=== PATIENT | female | born 1980 | race Caucasian/White ===

== ENCOUNTER 2021-12-29 08:11 | Day surgery (SDC) | payer BC, SELFPAY ==
--- NOTE | 2021-12-20 07:56 | PCM.HP.BLA ---
History and Physical Date of Admission: 12/29/21 Pre-Op History and Physical ? HPI: The patient is a 41 year old female presenting for AUB and hydrosalpinx. Pt would like to proceed with Endometrial ablation, hysteroscopy and Laparoscopic bilateral salpingectomy. Pt does not desire further child bearing capabilities- had vasectomy previously. pre-operative visit. She is scheduled for Hysteroscopy, Endometrial ablation, Laparoscopic bilateral salpingectomy, for AUB, hydrosalpinx, desires sterilization on 12/29/21. Procedure discussed along with risks, benefits and complications. Other alternatives discussed for management. Consent form signed? Yes. ? ? PAST MEDICAL HISTORY PAST MEDICAL HISTORY Diagnosis Date ? Anxiety ? ? on meds ? Asthma ? ? childhood, albuterol as needed ? Foot drop, right foot ? ? Low back pain ? ? in pain management ? PDA (patent ductus arteriosus) ? ? at 4 yo ? ? PAST SURGICAL HISTORY PAST SURGICAL HISTORY Procedure Laterality Date ? D&C, DIAG AND/OR THERAPEUTIC ? 10/2016 ? Dilation & curettage ? PAST SURGICAL HISTORY OF Left 2013 ? ORIF left ankle with hardware ? PAST SURGICAL HISTORY OF ? 07/15/2015 ? microdiscectomy and lumbar laminectomy ? PDA CLOSURE ? ? ? 4 yo ? ? ? CURRENT MEDICATIONS Current Outpatient Medications Medication Sig Dispense Refill ? meloxicam (MOBIC) 7.5 mg tablet Take 7.5 mg by mouth. ? ? ? amitriptyline (ELAVIL) 50 mg tablet Take 50 mg by mouth daily at bedtime. ? ? ? lisinopril (ZESTRIL, PRINIVIL) 10 mg tablet lisinopril 10 mg tablet ? ? ? escitalopram oxalate (LEXAPRO) 10 mg tablet Take 10 mg by mouth. ? ? ? No current facility-administered medications for this visit. ? ? ALLERGIES: Patient has no known allergies. ? PERSONAL HISTORY: SOCIAL HISTORY Social History ? Tobacco Use ? Smoking status: Current Every Day Smoker ? ? Packs/day: 0.50 ? ? Years: 23.00 ? ? Pack years: 11.50 ? ? Types: Cigarettes ? Smokeless tobacco: Never Used Substance Use Topics ? Alcohol use: Yes ? ? Comment: 10/month ? Drug use: No ? FAMILY HISTORY: FAMILY HISTORY FAMILY HISTORY Problem Relation Age of Onset ? Hypertension Mother ? ? Heart disease Maternal Grandfather ? ? Diabetes Maternal Grandfather ? ? Heart disease Paternal Grandfather ? ? ? REVIEW OF SYMPTOMS: negative except as noted above PHYSICAL EXAMINATION: ? VITALS: Blood pressure 126/84, height 5' 5 (1.651 m), weight 185 lb (83.9 kg), last menstrual period 12/01/2021. ? GENERAL: The patient is well nourished, well hydrated in no acute distress. , The patient is oriented to time, place, and person. NECK: full range of motion LUNGS: Clear to auscultation bilaterally. no wheezes, rhonchi or rales HEART: Regular rate and rhythm, Normal heart sounds and No murmurs or gallops ? ? IMPRESSION: AUB, hydrosalpinx, desires sterilization ? PLAN: Hysteroscopy, Ashley ablation, Lap Salpingectomy ? Pt has been counseled on risks/benefits and alternatives of surgery including but not limited to anesthesia, bleeding, infection, injury to pelvic structures including bowel, bladder, ureters and vessels. Pt wishes to proceed with surgery at this time. Pt understands off label use with fibroids - greatest 2.9cm. pt wishes to proceed. ? Pre and post op instructions reviewed. ? I have reviewed and updated past medical and surgical history, medications and allergies Karen Bynum MD ?4:36 PM
[2021-12-29] VITALS (7 sets, daily range): BP systolic 121–141; BP diastolic 76–94; PULSE 65–84; RESP 16–18; TEMP 36.3–36.4; O2SAT 97–100; BMI 29.9
--- NOTE | 2021-12-29 | FALS_PTH ---
PATIENT: HARSHA MÉNDEZ [place] [facility] [id number] AGE/SX: 41/F ROOM: RE12/29/[address]: Dr. Karen Leggett, MDDOB: 1980 BED: DIS: 12/29/2021 SPEC #: [id number] RECD: 12/29/21 12:53 STATUS: CHACE RAN #: [id number] COSME: 12/29/21 00:[address]: Karen Leggett DEPT: SURGICAL PATHOLOGY RECD BY: Jeffry Falk Tissues: Fallopian tube Procedures: Surgery Specimen Level IV Surgery Specimen Level V HEADER OPERATION: Hysteroscopy, Ashley, laparoscopic salpingectomy PRE-OP DIAGNOSIS: Hydrosalpinx, sterilization, abnormal uterine bleeding TISSUE SUBMITTED: Bilateral fallopian tubes MICROSCOPIC DIAGNOSIS Bilateral fallopian tubes, salpingectomy: One fallopian tube, no pathologic diagnosis. Second fallopian tube with dilated lumen consistent with hydrosalpinx. YASMEEN:екатерина 12/30/2021 MICROSCOPIC DESCRIPTION Slides are reviewed. GROSS DESCRIPTION Received in fixative is one container labeled with the patient's name and designated bilateral fallopian tubes. The specimen consists of bilateral fallopian tubes including fimbrial ends. One fallopian tube is intact and measures 6 cm in length and 0.5 cm in diameter. The second fallopian tube is received in multiple pieces measuring in aggregate 3 x 2 x 0.5 cm. One of the pieces is dilated lumen measuring up to 1 cm in diameter. The fallopian tubes are not identified as right or left. Sections reveal unremarkable cut surfaces. Balloon Design Printer sections are submitted in two cassettes as follows: 1 - intact fallopian tube, 2 - second fallopian tube received in multiple pieces. / YASMEEN:екатерниа 12/29/2021 :4 CPT: 17343, 19422
--- NOTE | 2021-12-29 08:23 | EKG12_ITS ---
Test Reason : PRE OP Blood Pressure : / mmHG Vent. Rate : 064 BPM Atrial Rate : 064 BPM P-R Int : 124 ms QRS Dur : 080 ms QT Int : 436 ms P-R-T Axes : 009 020 016 degrees QTc Int : 449 ms Normal sinus rhythm Normal ECG No previous ECGs available Confirmed by LISA MARTIN, ALEK ([id number]), graphic editor JAMIL GRANDA ([id number]) on 01/02/2022 11:28:34 AM Referred By: Karen Leggett Confirmed By:ALEK ROSENBAUM MD
[2021-12-29 08:44] LABS: Internal QC Validated? YES +Cl - CLEAR BKGD; Pregnancy, Urine Negative Negative
[2021-12-29] MEDS: Lactated Ringers 1,000 ML 15 ML IV ×2 (09:00→10:50)
--- NOTE | 2021-12-29 09:20 | EX.PCM.DISCH ---
Discharge Instructions Procedure Other Diet Discharge Diet: No restrictions Activity May resume sexual activity in: 2 weeks Lifting Restrictions: 20-25 lbs Dressing / Incision Call your doctor if your incision/area has: Continuous Slow Oozing, Sudden Increased Bleeding, Increased Pain/ Swelling, Increased Redness, Foul Smelling Discharge and Swelling at the incision site Call your doctor if you observe: Fever of 101 or Higher, Inability to urinate, Inability to have a bowel movement, Using more than 1 pad per hour and Uncontrolled pain Additional Dressing/Incision Instructions:: You have skin glue over your incision sites, do not pick off. You may shower and let the soap and water run over the incision sites and dab dry. Follow Up Care Please Follow Up With: Karen Leggett MD When: 1-2 weeks post OP if you need an appointment please call [phone] Test Results: Test results from this visit will be discussed in further detail at your follow-up appointment, if applicable. Discharge Plan Admission Attending Provider: Karen Leggett Discharge Orders/Prescriptions Prescriptions: No Action acetaminophen [Tylenol] 325 mg Tablet 650 mg PO Q4H PRN (Reason: Pain) RF: 0 lisinopril 10 mg Tablet 10 mg PO QHS RF: 0 ibuprofen 400 mg Tablet 400 mg PO Q6H PRN (Reason: Pain) RF: 0 escitalopram oxalate [Lexapro] 20 mg Tablet 40 mg PO QHS RF: 0
--- NOTE | 2021-12-29 09:21 | PCM.OPRPT ---
Problems Associated Problem List Diagnoses (1) Hydrosalpinx: (2) Request for sterilization: (3) Abnormal uterine bleeding (AUB): Report of Operation Date of Procedure: 12/29/21 Pre-Operative Diagnosis: Hydrosalpinx, desires sterilization, AUB Post-Operative Diagnosis: same Surgery/Procedure Performed:: Hysteroscopy, Ashley ablation, Laparoscopic bilateral salpingectomy Description of Surgical Findings:: Adhesions of left tube to pelvic side wall and uterus. Hydrosalpinx on left. Right tube and ovary normal. Surgeon: Karen Leggett chemistry technical officer: James Rivers Type of Anesthesia: General and Local Anesthesiologist: Manjinder Ordaz Special Medications: 0.5% marcaine Specimen's removed: bilateral tubes Drains: none Estimated Blood Loss (mL): 20 Fluids Replaced: 800 Description of Procedure: After informed consent was obtained patient taken to the operating room she is placed in supine position she is given anesthesia simply self insert she is prepped draped normal sterile fashion. Bladder was drained prior to the start of the procedure. At this time the weighted speculum was placed the posterior fornix of the vagina then a single-tooth tenaculum was used to grasp the anterior lip of the cervix. At this time the uterus was sounded to approximately 8 cm the endocervical canal sounded to 4 cm. Next cervix was dilated in incremental fashion. Once adequate dilatation was achieved the hysteroscope was inserted using normal saline as distention medium. On hysteroscopy there were no gross abnormalities. Both tubal ostia were visualized. At this At this time the Ashley device was opened. The Ashley was set at 4cm. The device was activated. Prior to activation the field test was performed and cavity was intact. The device was then fired and activated for 120 seconds. Once the 120 seconds was completed the device was removed intact and the tenaculum was removed. Good hemostasis was appreciated. Uterine Manipulator was placed. Weighted speculum was removed. Legs then placed in parallel with the abdomen the tenaculum and the weighted speculum were removed. 2 towel clamps were placed at level of umbilicus. Marcaine was injected infraumbilical and a small incision was made. The 5 mm trocar was placed under direct visualization. CO2 gas was used to insufflate the intra-abdominal cavity. Upon inspection the left tube and ovary were adherent to the pelvic sidewall and uterus. Hydrosalpinx appreciated the left. Multiple subserosal fibroids appreciated. At this time then the LLQ and RLQ ports were placed First Marcaine was injected and small incision was made a knife and the 5 mm trocars were placed. At this time the left tube was removed only partially. He started at the cornuate and and were able to dissect it and coagulate and ligate almost to the fimbriated end. There were multiple adhesions and I felt at this time it was safer to stop dissection. The majority of the tube was removed. Brown serous drainage was appreciated out of the tube. On the right tube was traced back to the fimbriated end it was removed in entirety by coagulated and ligated along mesosalpinx. X hemostasis was appreciated copious irrigation was performed. Good hemostasis was appreciated. At this time procedure was deemed complete successful. The gas was desufflated on from the intra-abdominal cavity. The trochars were removed. Skin was closed using 4-0 Monocryl in a subcutaneous fashion. Dermabond glue was placed. Instrument lap and needle counts were correct ?2. The uterine manipulator was removed. Vaginal sweep was performed it was negative. There were no complications anticipated normal postoperative course for this patient. Grafts/Implants Used: none Procedure Start Time: 09:47 Procedure Stop Time: 10:23 Admit VTE Documentation VTE Present on Admission: Yes VTE Mechan Device Prophylaxis: SCD's VTE Pharm Prophylaxis ordered?: No Reason prophylaxis not ordered:: Procedure Not Indicated
[2021-12-29 09:24] LABS: Hematocrit 35.8 % (37-47); Mean Corp Hgb Conc 33.5 g/dL (32-36); Mean Corpuscular Hgb 30.1 pg (27.0-32.0); Mean Corpuscular Volume 89.7 fL (81-99); Mean Platelet Vol. 10.2 fl (6.2-12.0); Platelet Count 282 K/mm3 (150-450); RBC Distribution Width CV 14.1 % (11.6-14.6); RBC Distribution Width SD 46.4 fl (35.1-43.9); Red Blood Count 3.99 M/mm3 (4.2-5.4); White Blood Count 8.3 K/mm3 (4.4-11.0)
[2021-12-29] MEDS: Bupivacaine Mpf 0.5% 30 ML VIAL (09:50)
== END 2021-12-29 23:59 | disposition home or self-care (01) ==
LOC: SDC 08:21 → AC 08:21
PROVIDERS: Referring Provider Obstetrics & Gynecology; Visit Provider Obstetrics & Gynecology
PROC: 0U5B8ZZ Destruction of Endometrium, Via Natural or Artificial Opening Endoscopic (ICD-10-PCS; CPT 58558; principal; 2021-12-29 09:30)
DX: N70.11 Chronic salpingitis (principal); D25.2 Subserosal leiomyoma of uterus; N93.9 Abnormal uterine and vaginal bleeding, unspecified; Z30.2 Encounter for sterilization; F17.210 Nicotine dependence, cigarettes, uncomplicated; F41.9 Anxiety disorder, unspecified; J45.909 Unspecified asthma, uncomplicated; F32.A Depression, unspecified; Z79.899 Other long term (current) drug therapy; I10 Essential (primary) hypertension; G25.81 Restless legs syndrome
CPT/HCPCS: 58661; 00840; 58563; 81025; 85027; 88302; 88305; 88307; 93005; J7120; C1760; J2405

== ENCOUNTER 2022-08-03 08:15 | Day surgery (SDC) | payer BC, SELFPAY ==
--- NOTE | 2022-07-25 15:19 | HP.PCM_ITS ---
History and Physical Date of Admission: 08/03/22 Pre-Op History and Physical ? HPI: The patient is a 42 year old female presenting for pre-operative visit. She is scheduled for TLH, cystoscopy, possible oophorectomy, for AUB, post ablation syndrome, Dysmenorrhea, fibroid uterus on 08/03/22. Procedure discussed along with risks, benefits and complications. Other alternatives discussed for management. Consent form signed? Yes. ? ? PAST MEDICAL HISTORY PAST MEDICAL HISTORY Diagnosis Date ? Anxiety ? ? on meds ? Asthma ? ? childhood, albuterol as needed ? Foot drop, right foot ? ? Low back pain ? ? in pain management ? PDA (patent ductus arteriosus) ? ? at 4 yo ? ? PAST SURGICAL HISTORY PAST SURGICAL HISTORY Procedure Laterality Date ? DILATION & CURETTAGE DX&/THER NONOBSTETRIC ? 10/2016 ? Dilation & curettage ? HYSTEROSCOPY,W/ENDOMETRIAL ABLATION ? 12/2021 ? [facility] - Dr. Bynum ? PAST SURGICAL HISTORY OF Left 2013 ? ORIF left ankle with hardware ? PAST SURGICAL HISTORY OF ? 07/15/2015 ? microdiscectomy and lumbar laminectomy ? PDA CLOSURE ? ? ? 4 yo ? SALPINGECTOMY Bilateral 12/2021 ? Left with hydrosalpinx (partial tube removal due to adhesions). Right Removed- Dr. Bynum @ [facility] ? ? ? CURRENT MEDICATIONS Current Outpatient Medications Medication Sig Dispense Refill ? lisinopril (ZESTRIL, PRINIVIL) 10 mg tablet lisinopril 10 mg tablet ? ? ? escitalopram oxalate (LEXAPRO) 10 mg tablet Take 10 mg by mouth. ? ? ? No current facility-administered medications for this visit. ? ? ALLERGIES: Patient has no known allergies. ? PERSONAL HISTORY: SOCIAL HISTORY Social History ? Tobacco Use ? Smoking status: Every Day ? ? Packs/day: 0.50 ? ? Years: 23.00 ? ? Pack years: 11.50 ? ? Types: Cigarettes ? Smokeless tobacco: Never Substance Use Topics ? Alcohol use: Yes ? ? Comment: 10/month ? Drug use: No ? FAMILY HISTORY: FAMILY HISTORY FAMILY HISTORY Problem Relation Age of Onset ? Hypertension Mother ? ? Heart disease Maternal Grandfather ? ? Diabetes Maternal Grandfather ? ? Heart disease Paternal Grandfather ? ? ? REVIEW OF SYMPTOMS: negative except as noted above PHYSICAL EXAMINATION: ? VITALS: Blood pressure 120/70, weight 189 lb (85.7 kg), last menstrual period 03/22/2022. ? GENERAL: The patient is well nourished, well hydrated in no acute distress. , The patient is oriented to time, place, and person. NECK: full range of motion ? ? IMPRESSION: 42yo s/p Endometrial ablation- with AUB (failed medical mgmt with Aygestin), dysmenorrhea, fibroid uterus ? PLAN: TLH, cystoscopy, possible Oophorectomy ? Pt has been counseled on risks/benefits and alternatives of surgery including but not limited to anesthesia, bleeding, infection, injury to pelvic structures including bowel, bladder, ureters and vessels. Pt wishes to proceed with surgery at this time. Reviewed possible need for blood transfusion. Reviewed possible fistula formation. Reviewed unrecognized injuries during surgery. Pre and post op instructions reviewed. Post op medications reviewed- motrin, tylenol, stool softeners. ? Pap and HPV to be done. Previous EMB done prior to Endometrial ablation was negative ? ? I have reviewed and updated past medical and surgical history, medications and allergies Karen Bynum MD Office Visit on 07/21/2022 Office Visit on 07/21/2022 Note shared with patient
[2022-07-31 10:07] LABS: Hematocrit 42.2 % (37-47); Hemoglobin 14.4 g/dL (12.0-15.0); Mean Corp Hgb Conc 34.1 g/dL (32-36); Mean Corpuscular Hgb 30.8 pg (27.0-32.0); Mean Corpuscular Volume 90.2 fL (81-99); Mean Platelet Vol. 9.5 fl (6.2-12.0); Platelet Count 339 K/mm3 (150-450); RBC Distribution Width CV 12.5 % (11.6-14.6); RBC Distribution Width SD 41.3 fl (35.1-43.9); Red Blood Count 4.68 M/mm3 (4.2-5.4)
[2022-07-31 10:32] LABS: Magnesium 2.3 mg/dL (1.6-2.6)
[2022-07-31 13:32] LABS: Anion Gap 10 (5-15); BUN 13 mg/dL (7-18); BUN/Creat Ratio 15.3 RATIO (10-20); Calcium,Total 9.7 mg/dL (8.5-10.1); Chloride 106 mmol/L (98-107); Creatinine, Serum 0.85 mg/dL (0.55-1.02); EST Glomerular Filtration Rate 79 mL/min (>60); Est Glom Filt Rate - Afr Amer 96 mL/min (>60); Glucose 98 mg/dL (74-106); Potassium 4.2 mmol/L (3.5-5.1); Sodium Level 137 mmol/L (136-145)
[2022-08-03] VITALS (9 sets, daily range): BP systolic 101–137; BP diastolic 61–86; PULSE 72–101; RESP 14–16; TEMP 36.3–36.6; O2SAT 96–100; BMI 31.7
[2022-08-03 08:57] LABS: Internal QC Validated? YES +Cl - CLEAR BKGD; Pregnancy, Urine Negative Negative
[2022-08-03] MEDS: Magnesium 1 GM over 15 mins IV (09:00)
[2022-08-03] MEDS: Lactated Ringers 1,000 ML 40 ML IV (09:07)
[2022-08-03] MEDS: Gabapentin 600 MG Tablet PO (09:08)
[2022-08-03] MEDS: Phenazopyridine 95 MG Tablet 190 MG PO (09:08)
[2022-08-03] MEDS: Enoxaparin 40 MG/0.4 ML Syringe SC (09:08)
[2022-08-03] MEDS: Acetaminophen 500 MG Tablet 1000 MG PO (09:08)
[2022-08-03] MEDS: Celecoxib 200 MG Capsule 400 MG PO (09:08)
[2022-08-03 09:31] LABS: Bedside Glucose 87 mg/dL (74-106)
--- NOTE | 2022-08-03 10:40 | HYST_PTH ---
PATIENT: HARSHA MÉNDEZ LOC: [facility] – [place] U#:[id number] AGE/SX: 42/F ROOM: RE08/03/[address]: Dr. Karen Leggett, MDDOB: 1980 BED: DIS: 08/03/2022 SPEC #: [id number] RECD: 08/03/22 14:32 STATUS: CHACE RAN #: [id number] COSME: 08/03/22 10:[address]: Karen Leggett DEPT: SURGICAL PATHOLOGY RECD BY: Raine Galeana ENTERED: 08/04/22 08:00 SP TYPE: HYSTERECT OT DR: No Primary Care Phys Tissues: Uterus, NOS Procedures: Surgery Specimen Level V HEADER OPERATION: ERAS, total laparoscopic hysterectomy, cystoscopy, partial left salpingectomy PRE-OP DIAGNOSIS: Abnormal uterine bleeding, dysmenorrhea, fibroid uterus TISSUE SUBMITTED: Uterus, cervix, partial left fallopian tube MICROSCOPIC DIAGNOSIS Uterus, hysterectomy: Cervix - No pathologic change. Endometrium ? weakly proliferative to inactive endometrium. Myometrium ? leiomyomas and adenomyosis. Left fallopian tube ? hydrosalpinx. AM:екатерина 08/07/2022 MICROSCOPIC DESCRIPTION Slides are reviewed. GROSS DESCRIPTION Received in fixative is one container labeled with the patient's name and designated uterus, cervix, partial left fallopian tube. The specimen consists of a hysterectomy specimen consisting of uterus with cervix, a detached nodular mass and two detached pieces of soft tissue and a small portion of left fallopian tube. The uterus with cervix, detached nodular pieces and detached pieces of soft tissue weigh in aggregate 172 gm. The uterus with cervix measures 9.5 x 8 x 5.5 cm. The serosal surface is you, glistening. Multiple subserosal nodules are also noted. A defect is noted in the anterior wall most likely site of detached nodular pieces and soft tissue. The external os is circular in contour. The ectocervical mucosa is unremarkable. The endocervical canal measures 3.5 cm in length. The endocervical mucosa is you, glistening and unremarkable. The triangular endometrial cavity measures 5 cm in length and up to 3 cm in width. The endometrium is you, glistening without any mass lesion and measures 0.1 cm in thickness. The uterine wall reveal multiple intramural and subserosal nodular masses. The largest intramural and subserosal nodular mass measures 2 cm in greatest dimension. The detached nodular mass measures up to 3.5 cm in greatest dimension. Sections of these masses reveal you whorled cut surfaces without areas of hemorrhage, necrosis or cystic degeneration. The uninvolved uterine wall measures up to 2.5 cm in thickness. The detached pieces of tissue measure in aggregate 4 x 2 x 0.5 cm. One of the pieces appear to consist of portion of fallopian tube. The attached portion of fallopian tube measures 1 cm in length and 0.5 cm in diameter. Sections of the attached portion of fallopian tube contains mildly dilated lumen filled with clear fluid. Tankroom Worker sections are submitted in 11 cassettes as follows: 1 - anterior cervix, 2 - posterior cervix, 3 & 4 - anterior uterine wall, 5 & 6 - posterior uterine wall (sections of uterine wall also contain the nodular masses), 7 & 8 - largest intramural and subserosal nodular mass, 9 - smaller intramural and subserosal nodular masses, 10 - detached nodular mass, 11??attached portion of fallopian tube and also detached portion of possible fallopian tube. / YASMEEN:екатерина 08/04/2022 TC:1 CPT: 05865
--- NOTE | 2022-08-03 11:12 | PCM.OPRPT ---
Report of Operation Date of Procedure: 08/03/22 Pre-Operative Diagnosis: AUB, dysmenorrhea, fibroid uterus, pelvic pain, S/p Endometrial ablation Post-Operative Diagnosis: same Surgery/Procedure Performed:: TLH, Cystoscopy Description of Surgical Findings:: Pelvic adhesions to left tube/ovary and pelvic side side wall. residual tube on left from previous salpingectomy- fluid filled. Surgeon: Karen Leggett livestock producer: Wanda Roth Type of Anesthesia: General and Local Special Medications: 0.25% marcaine Specimen's removed: uterus, cervix , portion left tube Drains: none Estimated Blood Loss (mL): 50 Fluids Replaced: 1000 Description of Procedure: Patient take to OR and prepped and draped in usual sterile fashion in dorsal lithotomy position with her arms tucked in a neurologically safe and neutral position. The uterus sounded to 7.5 cm. The craft demonstrator uterine manipulator was sutured into place. Attention was turned to the abdomen. All port sites were infiltrated with 0.25% marcaine before the incisions were made. The anterior abdominal wall was tented up with towel clamps and using a direct entry approach a 5 mm intraumbilical port was placed. Intraperitoneal placement was confirmed with the laparoscope and the pneumoperitoneum was created. The patient was placed in Trendelenburg and 5 mm right and left lower quadrant ports were placed under direct visualization. Air seal rapid insufflator was used. The bowel was swept away. Ovaries appeared normal. Previous Salpingectomy noted. portion of left tube distended still present and attached to left pelvic side wall. The round ligaments were divided. The anterior peritoneum was dissected down to create the bladder flap with blunt dissection and the LigaSure. The uterine arteries were isolated, clamped, sealed and cut. There was minimal back bleeding from the uterus. Straight bites on uterine artieries performed to drop them off the cuff. Remaining portion of left tube was dissected off side wall and removed. The craft demonstrator was used as guide to create colpotomy using monopolar tip of ligasure. once specimen was removed attention was turned to vaginal portion. The specimen was handed off. The cuff was closed with interrupted 0-vicryl figure of 8 sutures. Cystoscopy was performed bilateral ureters were visualized with good efflux. bladder was intact. espitia replaced and sponge stick placed in vagina. The pneumoperitoneum was recreated and the cuff cuff and right pedicle were hemostatic. small oozing from left pedicle. hemostasis achieved with ligasure and then fibrillar and noé placed. good hemostasis appreciated. Noé was placed over cuff and pedicles. The skin incisions were closed with skin glue and 3-0 monocryl in the LLQ port site. The vaginal sweep was completed by me. Grafts/Implants Used: none Dr. Roth assisted in manipulation of the camera and retractions and disection during the surgery. Grafts/Implants Used: none Procedure Start Time: 11:46 Procedure Stop Time: 13:17 Complications none Admit VTE Documentation VTE Present on Admission: Yes VTE Mechan Device Prophylaxis: SCD's VTE Pharm Prophylaxis ordered?: Yes
--- NOTE | 2022-08-03 11:16 | DCINST_ITS ---
Discharge Instructions Diet Discharge Diet: No restrictions Activity Discharge Activity: May Not Drive (while taking narcotics. may drive when pain controlled. ) and May Shower Return to work on:: 05/12/21 May shower in (days): 1 May resume sexual activity in: 6-8 weeks Weight Bearing Status: Full weight bearing Lifting Restrictions: 20 Additional Activity Instructions:: NOTHING IN THE VAGINA x 6-8 weeks. Dressing / Incision Call your doctor if your incision/area has: Continuous Slow Oozing, Sudden Increased Bleeding, Increased Pain/ Swelling, Increased Redness, Foul Smelling Discharge and Swelling at the incision site Call your doctor if you observe: Fever of 101 or Higher, Inability to have a bowel movement, Using more than 1 pad per hour and Uncontrolled pain Change Dressing in: leave in place till F/U (you have skin glue over incision sites- do not pick off) Cleanse incision/area with: Soap & Water, Keep Dressing Clean & Dry and - (you may let soap and water run over incision sites and dab dry. ) Follow Up Care Please Follow Up With: Karen Leggett MD When: 2 weeks as scheduled for post op visit Test Results: Test results from this visit will be discussed in further detail at your follow- up appointment, if applicable. Discharge Plan Admission Attending Provider: Karen Leggett Primary Care Provider: Manisha Palacios Primary Discharge Orders/Prescriptions Prescriptions: No Action acetaminophen [Tylenol] 325 mg Tablet 650 mg PO Q4H PRN (Reason: Pain) lisinopril 10 mg Tablet 10 mg PO QHS ibuprofen 400 mg Tablet 400 mg PO Q6H PRN (Reason: Pain) escitalopram oxalate [Lexapro] 20 mg Tablet 40 mg PO QHS amitriptyline 50 mg Tablet 50 mg PO QHS hydroxyzine pamoate [Vistaril] 25 mg Capsule 25 mg PO BID PRN (Reason: Anxiety) Referrals / Follow Up: Manisha Palacios Primary [Primary Care Provider] -
[2022-08-03] MEDS: Cefazolin 2 GM in 0.9% Normal Saline 100 ML IV (11:34)
[2022-08-03] MEDS: dexAMETHasone 10 MG/ML Vial 8 MG IV (11:45)
[2022-08-03] MEDS: Ondansetron 4 MG/2 ML Vial IV (12:48)
[2022-08-03] MEDS: HYDROcodone Bitartrate/Apap 5/325 Tablet PO (15:30)
[2022-08-03 16:38] LABS: Hematocrit 38.4 % (37-47); Hemoglobin 12.8 g/dL (12.0-15.0); Mean Corp Hgb Conc 33.3 g/dL (32-36); Mean Corpuscular Hgb 30.1 pg (27.0-32.0); Mean Corpuscular Volume 90.4 fL (81-99); Mean Platelet Vol. 9.4 fl (6.2-12.0); Platelet Count 318 K/mm3 (150-450); RBC Distribution Width CV 12.5 % (11.6-14.6); Red Blood Count 4.25 M/mm3 (4.2-5.4); White Blood Count 17.6 K/mm3 (4.4-11.0)
== END 2022-08-03 16:54 | disposition home or self-care (01) ==
LOC: SDC 08:21 → AC 08:21
PROVIDERS: Anesthesiology; Referring Provider Obstetrics & Gynecology; Visit Provider Obstetrics & Gynecology
PROC: 0UT94ZZ Resection of Uterus, Percutaneous Endoscopic Approach (ICD-10-PCS; CPT 58571; principal; 2022-08-03 10:20)
DX: D25.9 Leiomyoma of uterus, unspecified (principal); N80.03 Adenomyosis of the uterus; N70.11 Chronic salpingitis; F17.210 Nicotine dependence, cigarettes, uncomplicated; F41.9 Anxiety disorder, unspecified; F32.A Depression, unspecified; I10 Essential (primary) hypertension; Z79.899 Other long term (current) drug therapy
CPT/HCPCS: 58571; 52000; 00840; 36415; 80048; 81025; 82962; 83735; 85027; 86850; 86900; 86901; 88307; J7120; J2405; J3475